=== PATIENT | female | born 1990 | race Asian ===

== ENCOUNTER 2020-01-09 13:53 | Emergency (ER) | payer OTHER ==
[2020-01-09 14:02] VITALS: BP 122/81; PULSE 72; TEMP 98.2
--- NOTE | 2020-01-09 14:24 | PDOC ---
History of Present Illness - General Chief Complaint: Pain Stated Complaint: R/ FEET INJURY Time Seen by Provider: 01/09/20 14:07 History Source: Patient Exam Limitations: No Limitations - History of Present Illness Initial Comments: 01/09/20 14:22 HISTORY OF PRESENT ILLNESS: 29-year-old woman denies medical history presents emergency department for evaluation of right fifth toe pain for 2 weeks status post fall while exercising. Patient reports the foot had a large ecchymosis along the dorsal aspect of the foot which is now resolved according to the patient. Patient states she has been ambulatory over the 2 weeks and now has minimal to no pain with ambulation. No recent travel or sick contacts. PAST MEDICAL HISTORY: Denies past medical history SURGICAL HISTORY: Denies ALLERGIES: No known drug allergies REVIEW OF SYSTEMS General/Constitutional: Denies fever or chills. Denies weakness, weight change. HEENT: Denies change in vision. Denies ear pain or discharge. Denies sore throat. Cardiovascular: Denies chest pain or shortness of breath. Respiratory: Denies cough, wheezing, or hemoptysis. Gastrointestinal: Denies nausea, vomiting, diarrhea or constipation. Denies rectal bleeding. Genitourinary: Denies dysuria, frequency, or change in urination. Musculoskeletal: See HPI es neck or back pain. Skin and breasts: Denies rash or easy bruising. Neurologic: Denies headache, vertigo, loss of consciousness, or loss of sensation. Psychiatric: Denies depression or anxiety. Endocrine: Denies increased thirst. Denies abnormal weight change. Hematologic/Lymphatic: Denies anemia, easy bleeding, or history of blood clots. Allergic/Immunologic: Denies hives or skin allergy. Denies latex allergy. PHYSICAL EXAM General Appearance: Well-appearing, appropriately dressed. No apparent distress, no intoxication. Musculoskeletal/Extremities: Normal inspection. FROM of all extremities, normal capillary refill. Pelvis Stable. No CVA tenderness. No tenderness to extremities, pedal edema, swelling, erythema or deformity. Neurovascularly intact. Integumentary: Appropriate color, dry, warm. No cyanosis, erythema, jaundice or rash Past History - Medical History Allergies/Adverse Reactions: Allergies Allergy/AdvReac Type Severity Reaction Status Date / Time No Known Allergies Allergy Verified 01/09/20 13:55 COPD: No - Reproductive History Is Patient Now?: No - Psycho-Social/Smoking History Smoking History: Never smoked Have you smoked in the past 12 months: No - Substance Abuse Hx (Audit-C & DAST Scrn) How often the patient has a drink containing alcohol: Never Score: In Men: 4 or > Positive; In Women: 3 or > Positive: 0 Screen Result (Pos requires Nsg. Audit-10AR): Negative In the last yr the pt used illegal drug/Rx for NonMed reason: No Score: Yes response is considered Positive: 0 Screen Result (Positive result requires Nsg. DAST-10): Negative *Physical Exam - Vital Signs Last Vital Signs Temp Pulse Resp BP Pulse Ox 98.2 F 72 16 122/81 99 01/09/20 13:55 01/09/20 13:55 01/09/20 13:55 01/09/20 13:55 01/09/20 13:55 ED Treatment Course - RADIOLOGY Radiology Studies Ordered: Category Date Time Status FOOT-RIGHT [RAD] Stat Radiology 01/09/20 14:16 Ordered Medical Decision Making - Medical Decision Making 01/09/20 14:23 A/P: 29-year-old woman with right fifth toe pain status post trauma 2 weeks prior to arrival Physical exam is unremarkable X-rays Likely discharge with podiatry follow-up 01/09/20 14:32 X-rays read by me: Fracture of the proximal phalanx of the fifth toe on the right foot Hard soled shoe Discharge home with podiatry follow-up I discussed the physical exam findings, ancillary test results and final diagnoses with the patient. I answered all of the patient's questions. The patient was satisfied with the care received and felt comfortable with the discharge plan and treatment plan. The patient will call their primary care physician within 24 hours to arrange follow-up and will return to the Emergency Department with any new, persistent or worsening symptoms. Portions of this note have been documented using voice recognition software. As a result, errors may occur in the internal recruiter process. Effort has been made to correct all grammatical and internal recruiter error, but some may have been missed which may produce sporadic inaccurate internal recruiter or nonsensical phrases. Discharge - Discharge Information Problems reviewed: Yes Clinical Impression/Diagnosis: Phalanx of the foot fracture Qualifiers: Encounter type: initial encounter Toe: lesser toe Fracture type: closed Phalanx: proximal Physeal involvement: not involving physis Laterality: right Qualified Code(s): S92.511A - Displaced fracture of proximal phalanx of right lesser toe(s), initial encounter for closed fracture Condition: Stable Disposition: HOME - Admission No - Follow up/Referral Referrals: Marc Aquino DPM [Staff Physician] - - Patient Discharge Instructions Additional Instructions: Wear hard soled shoe while walking. Keep your foot elevated when not standing. Take Tylenol or Motrin as needed for pain. Follow clocksmith's instructions for appropriate dosage. You be given a referral for dosier operator. Call to schedule an appointment for continued evaluation. Return to the emergency department for any new or worsening symptoms. Thank you very much for choosing us to provide your emergent healthcare needs. - Post Discharge Activity
== END 2020-01-09 14:43 | disposition home or self-care (01) ==
LOC: JERFT 13:53
DX: S92.511A Displaced fracture of proximal phalanx of right lesser toe(s), initial encounter for closed fracture (principal)
CPT/HCPCS: 73630-TC-RT-FY; 99283-25